=== PATIENT | female | born 1960 | race Caucasian/White ===

== ENCOUNTER 2017-11-17 11:10 | Day surgery (SDC) | payer BC ==
--- NOTE | 2017-11-17 07:30 | PCM.PREANE ---
Preanesthetic Assessment - Anesthesia/Transfusion/Family Hx Anesthesia History: Prior Anesthesia Reaction Type of Anesthesia Reaction: Other (see below) (difficult/faled intubation) Family History of Anesthesia Reaction: No Transfusion History: No Prior Transfusion(s) Intubation History: History of Difficulty Intubation - Review of Systems General: No Symptoms Pulmonary: No Symptoms Cardiovascular: No Symptoms Gastrointestinal: No Symptoms Neurological: No Symptoms Other: Reports: Anxiety (and panic) - Physical Assessment NPO Status Date: 11/16/17 Height: 1.65 m Weight: 79.379 kg ASA Class: 2 Mental Status: Alert & Oriented x3 Airway Class: Mallampati = 2 Dentition: Reports: Normal Dentition ROM/Head Extension: Limited/Partial (no cervical extension) Lungs: Clear to Auscultation, Normal Respiratory Effort Cardiovascular: Regular Rate, Regular Rhythm - Allergies Allergies/Adverse Reactions: Allergies Allergy/AdvReac Type Severity Reaction Status Date / Time No Known Allergies Allergy Verified 11/14/17 10:44 - Anesthesia Plan Pre-Op Medication Ordered: Anxiolytic - Acknowledgements Anesthesia Type Planned: General Anesthesia Pt an Appropriate Candidate for the Planned Anesthesia: Yes Alternatives and Risks of Anesthesia Discussed w Pt/Guardian: Yes Pt/Guardian Understands and Agrees with Anesthesia Plan: Yes PreAnesthesia Questionnaire HEENT History: Reports: Other (See Below) Other HEENT History: wears glasses/contacts Cardiovascular History: Reports: Heart Murmur Gastrointestinal History: Reports: Hepatitis, Other (See Below) Other Gastrointestinal History: rt upper quad pain, hx hepatitis A in 1987 [employer]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: Musculoskeletal History: Reports: Fracture Other Musculoskeletal History: hx fx foot Psychiatric History: Reports: Depression Oncologic (Cancer) History: Reports: Squamous Cell Carcinoma - Past Surgical History Head Surgeries/Procedures: Reports: None Dermatological Surgical History: Reports: Skin Biopsy - SUBSTANCE USE Smoking Status *Q: Never Smoker Recreational Drug Use History: No - HOME MEDS Home Medications: Home Meds Escitalopram [Lexapro] 20 mg PO DAILY 11/14/17 [History] Estradiol [Evamist] 1 spray TOP DAILY 11/14/17 [History] Progesterone,Micronized [Progesterone] 1 tab PO BEDTIME 11/14/17 [History] - CURRENT (IN HOUSE) MEDS Current Meds: Current Medications Lactated Ringer's (Ringers, Lactated) 1,000 mls @ 125 mls/hr IV ASDIRECTED LAWANDA Discontinued Medications Cefazolin Sodium/Dextrose 2 gm (/ Premix) 50 mls @ 100 mls/hr IV ONETIME ONE Stop: 11/17/17 05:29
[~2017-11-17 11:10] MED LIST: Acetaminophen/oxyCODONE 325-10 MG Tab PO ONE; Bupivacaine 25%/EPINEPHrine/PF 30 ML ONE; Lactated Ringers 1,000 ML IV SCH; ceFAZolin 2 GM in Premix Bag 1 BAG IV ONE
[2017-11-17] MEDS ORDERED: Scopolamine 1.5 MG Transdermal Patch ONE (11:59)
[2017-11-17] MEDS ORDERED: Rocuronium 10 MG/ML 10 ML Syringe ONE ×2 (12:45→12:46)
[2017-11-17] MEDS ORDERED: Lidocaine 2% 5 ML SDV ONE ×2 (12:45→12:46)
[2017-11-17] MEDS ORDERED: Ketorolac 30 MG/ML SDV ONE ×2 (12:45→12:46)
[2017-11-17] MEDS ORDERED: Ondansetron 4 MG/2 ML SDV ONE ×2 (12:45→12:46)
[2017-11-17] MEDS ORDERED: ePHEDrine 50 MG/ML SDV ONE (12:46)
[2017-11-17] MEDS ORDERED: fentaNYL 250 MCG/5 ML SDV ONE (12:47)
[2017-11-17] MEDS ORDERED: Midazolam 1 MG/ML 2 ML SDV ONE (12:47)
[2017-11-17] MEDS ORDERED: Propofol 200 MG/20 ML SDV ONE (12:48)
[2017-11-17] MEDS ORDERED: Labetalol 100 MG/20 ML MDV ONE ×2 (13:58→14:11)
--- NOTE | 2017-11-17 15:36 | PCM.OPNOTE ---
- General Post-Op/Procedure Note Date of Surgery/Procedure: 11/17/17 Operative Procedure(s): lap claire Findings: gb wall is mildly thickened; with severe adherence to surrounding organs; a stone lodged at the cystic duct, and pt bleed easily; mild adherence of ascending colon to abd wall. [id number] Pre Op Diagnosis: acute and chronic cholecystitis Post-Op Diagnosis: Same Anesthesia Technique: General ET Tube Primary Surgeon: Ross Keys Pathology: sent Complications: None Condition: Good
[2017-11-17] MEDS ORDERED: Octyl 2-Cyanoacrylate 1 Tube ONE (16:06)
[2017-11-17] MEDS ORDERED: Acetaminophen/oxyCODONE 325-10 MG Tab ONE (16:16)
--- NOTE | 2017-11-17 17:07 | PCM48HPAN ---
Post Anesthesia Note - EVALUATION WITHIN 48HRS OF ANESTHETIC Vital Signs in Normal Range: Yes Patient Participated in Evaluation: Yes Respiratory Function Stable: Yes Airway Patent: Yes Cardiovascular Function Stable: Yes Hydration Status Stable: Yes Pain Control Satisfactory: Yes Nausea and Vomiting Control Satisfactory: Yes Mental Status Recovered: Yes
--- NOTE | 2017-11-17 17:07 | PCM.POSTAN ---
POST ANESTHESIA ASSESSMENT - MENTAL STATUS Mental Status: Alert, Oriented - RESPIRATORY Respiratory Status: Respiratory Rate WNL, Airway Patent, O2 Saturation Stable - CARDIOVASCULAR CV Status: Pulse Rate WNL, Blood Pressure Stable - GASTROINTESTINAL GI Status: No Symptoms - POST OP HYDRATION Hydration Status: Adequate & Stable
--- NOTE | 2017-11-17 22:24 | OR ---
SURGEON: Ross Keys MD DATE OF PROCEDURE: 11/17/2017 PREOPERATIVE DIAGNOSIS: Acute on chronic cholecystitis. POSTOPERATIVE DIAGNOSIS: Acute on chronic cholecystitis. PROCEDURE PERFORMED: Laparoscopic cholecystectomy. COMPLICATIONS: None. DESCRIPTION OF PROCEDURE: The patient was taken to the operating room and placed in the supine position. After the intubation of general endotracheal anesthesia, the patient's abdomen was prepped and draped in the usual sterile fashion. Using Optiview, a 12 mm trocar was placed supraumbilically and then followed with pneumoperitoneum. A 5 mm trocar was placed in the epigastrium and two 5 mm trocars placed in the right upper quadrant. The placement of the last three trocars was done under direct video supervision. Upon gaining entrance to the abdominal cavity, an extensive examination was then performed. The gallbladder was located and identified and retracted to the dome of the liver at the triangle of Calot. The cystic duct was clipped three more times and then using the endoscopic clip, was transected with placement of the endoscopic clip and transection was performed with care, ensuring the posterior prong of the instruments were clearly visualized prior to exercising the procedure. The gallbladder was dissected using electrocautery out of the liver bed and then removed using endoscopic bag through the umbilical site. The gallbladder was removed en bloc and there was no bile spillage and this was then followed with extensive irrigation until the bile was clear from blood and bile. The trocars were then removed under direct video supervision. The 12 mm umbilical site was then closed with deep stitches using 0 Vicryl followed with proximal stitches using 3-0 Vicryl and Dermabond. The other three trocar sites were closed with 3-0 Vicryl followed with approximation of skin with Dermabond. The patient was then awakened and extubated and transferred to the recovery room in hemodynamically stable condition. At the conclusion of the surgery, before closing the abdominal wound, instrument count and sponge count were done and were correct. The patient tolerated the procedure well and there were no intraoperative complications. Dr. Keys was present through the whole procedure. Just before surgery, a timeout was called. The patient was identified and procedure identified and procedure started. INTRAOPERATIVE FINDIN. Gallbladder is yellow and green with severe adherence to surrounding organ and omentum and the makes dissection necessary before the gallbladder was exposed. 2. The gallbladder wall is semi-thickened, but is not very thickened. 3. There is a stone lodged in the cystic duct and required dissection to squeeze out the stone back to the gall bladder. 4. Incidental finding, the patient at the right colon, the ascending colon has moderate adhesions from the colon to the abdominal wall from some inflammatory reaction. Of note, the patient does not have abdominal surgery in the past. At the end of the case, we needed to put some Surgicel to help in hemostasis. NAYELY / CONNIE /[id number] MTDD
== END 2017-11-17 17:23 | disposition home or self-care (01) ==
LOC: MW.SDS 11:10
PROVIDERS: ATTEND Surgery
DX: K80.10 Calculus of gallbladder with chronic cholecystitis without obstruction (principal); Z79.899 Other long term (current) drug therapy
CPT/HCPCS: 47562; A9270; J1885; J2250; J2405; J3010; J7120; 00790; 88304; J2704